=== PATIENT | female | born 1980 | race American Indian/Alaskan Native ===

== ENCOUNTER 2020-09-18 18:32 | Emergency (ER) | payer SELFPAY ==
[2020-09-18 19:06] VITALS: BP 151/93
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
== END 2020-09-18 20:30 | disposition home or self-care (01) ==
LOC: ED 18:32
DX: M79.18 Myalgia, other site (principal); Z79.899 Other long term (current) drug therapy; V49.49XA Driver injured in collision with other motor vehicles in traffic accident, initial encounter; Y92.410 Unspecified street and highway as the place of occurrence of the external cause; Y93.89 Activity, other specified; Y99.8 Other external cause status
CPT/HCPCS: 99281

== ENCOUNTER 2021-09-08 16:04 | Emergency (ER) | payer SELFPAY ==
[2021-09-08 17:43] VITALS: BP 135/91
== END 2021-09-08 19:55 | disposition left against medical advice (07) ==
LOC: ED 16:04
DX: J00 Acute nasopharyngitis [common cold] (principal); Z53.21 Procedure and treatment not carried out due to patient leaving prior to being seen by health care provider